=== PATIENT | male | born 1985 | race African-American/Black ===

== ENCOUNTER 2019-12-02 21:08 | Emergency (ER) | payer BC ==
--- NOTE | 2019-12-02 22:23 | EDM.PDOC ---
ED HPI GENERAL MEDICAL PROBLEM - General Chief Complaint: General Stated Complaint: HEADACHES, LT KNEE AND CALF PAIN Time Seen by Provider: 12/02/19 21:58 Source of Information: Reports: Patient History Limitations: Reports: No Limitations - History of Present Illness INITIAL COMMENTS - FREE TEXT/NARRATIVE: ELSA HPI: This is a pleasant overweight 34-year-old male that complains of chronic headache. Denies blurry vision weight loss slurred speech numbness weakness or tingling fever trauma or stiff neck. Patient also complains of left calf pain. He has no history of DVTs no family history of DVTs he does not take any hormones steroids or tobacco. There is no family history of DVTs but patient does frequently travel on planes. No recent trauma. PMHX/PSHX: Negative Social HX: Positive for social alcohol negative for tobacco or drugs ROS: See the remainder of chart PE: VS while vital signs stable General: No apparent distress Head: Atraumatic normocephalic no lumps bumps or bruises Eyes: EOMI PERRLA Ears: TMs intact no hemotympanum no signs of infection no mastoid tenderness Nose: No epistaxis nares patent no septal wall hematoma Throat: No pharyngeal erythema or exudate no tonsillar enlargement Neck: Supple, no cervical lymphadenopathy Chest wall: No point tenderness Heart: Regular rate and rhythm without murmur gallop or rub Lungs: There to auscultation and percussion without rales rhonchi or wheeze Abdomen: Soft nontender nondistended without guarding rigidity or rebound Neck: No spinal point tenderness full range of motion in all 6 directions Back: No spinal paraspinal or CVA tenderness Extremities: full rom through out. no effusions or tenderness of the calf skin: Warm dry intact no rashes MDM/ED Course: I did prolonged discussion with this patient about his headaches. I recommend he just try Tylenol for the headaches and get better sleep. I do not see any evidence of a subarachnoid hemorrhage intracranial bleed tumor mass. I discussed the risks and benefits of CT imaging. And the patient using shared decision decided not to do any CT imaging. Ultrasound of the calf was obtained was negative. no sign of any calf muscle injury or other knee injury Diagnosis: Calf pain tension headache Disposition: Home Left Leg Pain Score (Numeric/FACES): 6 - Related Data Allergies Allergy/AdvReac Type Severity Reaction Status Date / Time No Known Allergies Allergy Verified 12/02/19 21:24 Home Meds: Home Meds . [No Known Home Meds] 12/02/19 [History] Past Medical History - Past Health History Medical/Surgical History: Denies Medical/Surgical History HEENT History: Reports: None Cardiovascular History: Reports: None Respiratory History: Reports: None Gastrointestinal History: Reports: Other (See Below) Other Gastrointestinal History: reflux Genitourinary History: Reports: None Musculoskeletal History: Reports: None Neurological History: Reports: None Psychiatric History: Reports: None Endocrine/Metabolic History: Reports: None Hematologic History: Reports: None Immunologic History: Reports: None Oncologic (Cancer) History: Reports: None Dermatologic History: Reports: None - Infectious Disease History Infectious Disease History: Reports: None - Past Surgical History Head Surgeries/Procedures: Reports: None Male Surgical History: Reports: None Social & Family History - Tobacco Use Smoking Status *Q: Never Smoker Second Hand Smoke Exposure: No - Caffeine Use Caffeine Use: Reports: None - Recreational Drug Use Recreational Drug Use: No ED ROS GENERAL - Review of Systems Review Of Systems: See Below Constitutional: Reports: No Symptoms HEENT: Denies: Throat Swelling, Vertigo, Vision Change Respiratory: Reports: No Symptoms Cardiovascular: Reports: No Symptoms Endocrine: Reports: No Symptoms GI/Abdominal: Reports: No Symptoms : Reports: No Symptoms Musculoskeletal: Reports: No Symptoms Skin: Reports: No Symptoms Neurological: Reports: Headache. Denies: Confusion, Dizziness, Numbness, Paresthesia, Pre-Existing Deficit, Seizure, Syncope, Tremors, Trouble Speaking, Difficulty Walking, Weakness, Change in Speech, Gait Disturbance ED EXAM, GENERAL - Physical Exam Exam: See Below (See my H&P) Free Text/Narrative:: See My dictation Course - Vital Signs Last Recorded V/S: Last Vital Signs Temp 36.8 C 12/02/19 21:21 Pulse 70 12/02/19 23:27 Resp 17 12/02/19 23:27 BP 133/87 12/02/19 23:27 Pulse Ox 98 12/02/19 23:27 Departure - Departure Time of Disposition: 23:50 Disposition: Home, Self-Care 01 Clinical Impression: Pain of left calf - Discharge Information *PRESCRIPTION DRUG MONITORING PROGRAM REVIEWED*: Not Applicable *COPY OF PRESCRIPTION DRUG MONITORING REPORT IN PATIENT EDILIA: Not Applicable Referrals: PCP,None [Primary Care Provider] - Forms: ED Department Discharge Additional Instructions: Compresses to the calf as needed. Follow-up with your primary care doctor next week for any ongoing problems. Take Tylenol every 8 hours as needed for your headache. Try some melatonin to help you get a good night sleep. Make dietary modifications for weight loss as suggested by the physician Sepsis Event Note - Evaluation Sepsis Screening Result: No Definite Risk - Focused Exam Vital Signs: Vital Signs Temp Pulse Resp BP Pulse Ox 12/02/19 23:27 70 17 133/87 98 12/02/19 21:21 36.8 C 74 20 125/57 L 96 Date Exam was Performed: 12/02/19 Time Exam was Performed: 23:48
--- NOTE | 2019-12-02 23:35 | US ---
INDICATION: Left calf pain COMPARISON: None. TECHNIQUE: A compression venous ultrasound exam was performed of the left lower extremity using perez-scale imaging, color Doppler and spectral Doppler analysis. FINDINGS: Normal compressibility and venous flow with augmentation are demonstrated in the common femoral vein, superficial femoral vein, and popliteal vein. The posterior tibial and peroneal veins are also demonstrated to be patent. The deep femoral vein is not well visualized. Limited imaging of the contralateral groin demonstrates a normal spectral waveform and color Doppler venous blood flow within the right common femoral vein. IMPRESSION: No evidence of deep vein thrombosis within the left lower extremity. Dictated by Hermelindo Carrera MD @ Dec 02 2019 11:31PM Signed by Dr. Hermelindo Carrera @ Dec 02 2019 11:34PM
== END 2019-12-03 00:01 | disposition home or self-care (01) ==
LOC: MW.ED 21:08
DX: G44.209 Tension-type headache, unspecified, not intractable (principal); M79.662 Pain in left lower leg
CPT/HCPCS: 93971-26-LT; 93971-LT; 99284-25

== ENCOUNTER 2025-04-03 20:38 | Emergency (ER) | payer BC | END 2025-04-03 22:17 | disposition home or self-care (01) | LOC: MW.ED 20:38 | DX: S80.12XA Contusion of left lower leg, initial encounter (principal); W18.39XA Other fall on same level, initial encounter | CPT/HCPCS: 73590-26-LT; 73590-LT; 99282; 99283 ==